=== PATIENT | female | born 1950 | race Caucasian/White ===

== ENCOUNTER 2016-08-03 08:46 | Day surgery (SDC) ==
[2016-08-03] MEDS ORDERED: LIDOCAINE 1% 20 ML MDV ONE (09:15)
[2016-08-03] MEDS ORDERED: LIDOCAINE 1% 20 ML MDV ID ONE (09:15)
[2016-08-03] MEDS ORDERED: DIPRIVAN 20 ML VIAL IVP ONE (10:02)
[2016-08-03] MEDS ORDERED: VERSED ONE (10:02)
[2016-08-03 12:09] VITALS: BP 106/74; TEMP 97
--- NOTE | 2016-08-03 14:51 | OP ---
PROCEDURE: COLONOSCOPY TO THE ANASTOMOSIS. ENDOSCOPIST: Cristiane GOLDEN M.D. INDICATION: INSTRUMENT: PCFH-190. MEDICATION: PER ANESTHESIA. PROCEDURE: The patient was positioned for colonoscopy. The digital rectal exam was negative. The colonoscope was inserted through the anus and advanced under direct vision to the anastomosis. She has undergone right colectomy. The exam was normal throughout. The retroflex exam was normal. Withdrawal time 6 minutes and 45 seconds. PLAN: 1. Repeat colonoscopy in 5 years for screening given her history of carcinoid. 2. Further recommendations per her oncologist. RICHARD
== END 2016-08-03 11:10 | disposition home or self-care (01) ==
LOC: SURG 08:46
PROVIDERS: ATTEND Internal Medicine Gastroenterology
DX: Z08 Encounter for follow-up examination after completed treatment for malignant neoplasm (principal); Z85.030 Personal history of malignant carcinoid tumor of large intestine; Z90.49 Acquired absence of other specified parts of digestive tract; Z98.0 Intestinal bypass and anastomosis status